=== PATIENT | female | born 1970 | race Caucasian/White ===

== ENCOUNTER 2017-04-27 08:44 | Emergency (ER) | payer OTHER ==
[~2017-04-27] VITALS: Ht 157.5 cm; Wt 81.6 kg
--- NOTE | ~2017-04-27 | CR72 ---
[facility] A Service of [facility] & [facility] [place] RADIOLOGY TEXT RESULTS PATIENT: CHALINO GRIDER LOCATION: [facility] : 74 UNIT #: [id number] AGE: [address]: Hawk Velez SEX: F ORDER DR: [id number] [facility] [address] [place], [place] [address] [id number] MR#: [id number] Acc #: [id number] NAME: CHALINO GRIDER. : 1970 SEX: F STUDY DATE/TIME: 04/27/2017 9:24 UNIT: [facility] ROOM: STUDY DESCRIPTION: CR Chest Single View Portable Attending Physician: Hawk Velez R.N. Ordering Physician: Hawk Velez R.N. Primary Care Physician: Kyle Gamez M.D. MEDICAL IMAGING REPORT This report is preliminary unless electronic signature is present EXAM Portable chest INDICATIONS Chest pain and shortness of breath today. No comparisons. FINDINGS Lungs are well expanded. No airspace consolidation. Heart size is normal. IMPRESSION No active disease Dictated by... Peterson Gillespie M.D. THIS IS AN ELECTRONICALLY VERIFIED REPORT Peterson Gillespie M.D. at 04/28/2017 9:30 AM ALISA/ashwin TD: 04/27/2017 10:40 JOB #: [id number] MEDICAL IMAGING REPORT Page 1 of 1 COPY
--- NOTE | ~2017-04-27 | EKG ---
PATIENT: CHALINO GRIDER UNIT #: [id number] Ventricular Rate: 74 BPM Atrial Rate: 74 BPM P-R Interval: 154 ms QRS Duration: 82 ms Q-T Interval: 376 ms QTC Calculation(Bezet): 417 ms P [place]: 33 degrees Calculated R [place]: 32 degrees Calculated T [place]: 23 degrees Diagnosis Line: Normal sinus rhythm Diagnosis Line: Normal ECG Diagnosis Line: No previous ECGs available Diagnosis Line: Confirmed by DENIA CLINE MD ([id number]) on 04/27/2017 Diagnosis Line: 7:23:56 PM INTERPRETING MD: SON GANDARA
[~2017-04-27 08:44] MED LIST: CLARINEX5 MG PO; METFORMIN PO; NORVASC PO; PROTONIX PO; PROZAC PO; SINGULAIR PO; XOPENEX1.25 MG/0. NEB
[2017-04-27 09:25] LABS: BASOPHIL# 0.1 X10e3 (0-0.3); BASOPHIL% 2.1 % (0-2.5); EOSINOPHIL# 0.3 X10e3 (0-0.7); HEMATOCRIT 36.9 % (35.0-45.0); HEMOGLOBIN 12.3 gm/dL (12.0-16.0); LYMPHOCYTE# 1.5 X10e3 (1.0-3.5); MEAN CELL VOLUME 87.7 FL (83-96); MEAN CORPUSCULAR HEMOGLOBIN 29.2 PG (28-34); MEAN CORPUSCULAR HGB CONC 33.4 g/dL (30-36); MONOCYTE# 0.4 X10e3 (0-1.0); NEUTROPHIL% 62.9 % (40-75); PLATELET COUNT 220 X10e3 (140-420); RED CELL DISTRIBUTION WIDTH 15.4 % (11.0-15.5); WHITE BLOOD COUNT 6.3 X10e3 (4.0-10.5)
[2017-04-27 09:35] LABS: DIFF IND NO
[2017-04-27 09:36] LABS: POC - CKMB <1.0 ng/mL (0.0-7.9); POC - TROPONIN <0.05 ng/mL (<=0.05)
== END 2017-04-27 11:32 | disposition home or self-care (01) ==
LOC: CED 08:44
PROVIDERS: Nurse Practitioner
DX: J45.901 Unspecified asthma with (acute) exacerbation (principal); I10 Essential (primary) hypertension; Z90.49 Acquired absence of other specified parts of digestive tract; Z91.012 Allergy to eggs; Z88.8 Allergy status to other drugs, medicaments and biological substances
CPT/HCPCS: 36415; 71010; 82553; 84484; 85025; 93005; 94640; 99285